=== PATIENT | male | born 1945 | race Caucasian/White ===

== ENCOUNTER 2018-04-25 18:39 | Observation (INO) | payer OTHER ==
[2018-04-25] MEDS ORDERED: NA CHLORIDE 0.9% 2,000 ML ONE (19:39)
[2018-04-25 20:05] LABS: Absolute Lymphocytes (CBC) 2.7 K/uL (0.7-4.9); Absolute Monocytes 0.8 K/uL (0.1-1.3); Absolute Neutrophil 5.5 K/uL (1.8-8.0); Basophils % 0.6 % (0-1.3); Eosinophils % 4.1 % (0-4.4); Hematocrit 47.4 % (39.6-49.0); Lymphocytes % 28.8 % (15.3-44.8); MCH 30.1 pg (27.0-35.0); MCV 88.3 fL (80-100); MPV 8.7 fL (7.6-11.3); Monocytes % 8.8 % (3.3-12.3); RBC Red Blood Cell Count 5.37 M/uL (4.33-5.43)
[2018-04-25 20:15] LABS: Protime INR 0.89
[2018-04-25 20:26] LABS: ALT/SGPT 41 U/L (12-78); AST/SGOT 34 U/L (15-37); Albumin 3.5 g/dL (3.4-5.0); Alkaline Phosphatase 148 U/L (45-117); BUN Blood Urea Nitrogen 20 mg/dL (7-18); Bicarbonate 26 mmol/L (21-32); Bilirubin Direct < 0.1 mg/dL (0-0.2); Bilirubin Total 0.7 mg/dL (0.2-1.0); CKMB Creatine Kinase MB 1.8 ng/mL (0.3-3.6); Creatine Phosphokinase 89 U/L (39-308); Glucose Level 390 mg/dL (74-106); Lipase 173 U/L (73-393); Magnesium 2.5 mg/dL (1.8-2.4); NT PRO-BNP 102 pg/mL (<125); Potassium 4.5 mmol/L (3.5-5.1); Protein, Total 7.9 g/dL (6.4-8.2); Sodium Level 131 mmol/L (136-145)
[2018-04-25 20:31] LABS: Urine Blood NEGATIVE (NEG); Urine Glucose 2+ (NEG); Urine Protein NEGATIVE (NEG); Urine Specific Gravity 1.015 (1.005-1.030); Urine pH 5.5 (5.0-7.0)
--- NOTE | 2018-04-25 20:36 | EDPHYS ---
Physician Documentation [facility] Name: Robel Lynn Age: 72 yrs Sex: Male : 1945 Arrival Date: 04/25/2018 Time: 18:44 Bed 27 Private MD: Piero Abad R ED Physician Telly Hudson HPI: 04/25 19:28 This 72 yrs old Male presents to ER via Ambulatory with complaints of High deepthi Blood Sugar, Blurred Vision. 19:28 The patient or guardian reports hyperglycemia. Onset: The symptoms/episode deepthi began/occurred 5 day(s) ago. Associated signs and symptoms: Pertinent positives: None. Current symptoms: In the emergency department the patient's symptoms are unchanged from the initial presentation. The patient has not experienced similar symptoms in the past. Historical: - Allergies: 18:53 No Known Allergies; aj1 - Home Meds: 18:53 Aspirin Oral [Active]; aj1 - PSHx: 18:53 Hernia repair; open neck surgery to open carotid artery; Vasectomy; aj1 - Immunization history:: Flu vaccine is not up to date. - Social history:: Smoking status: Patient/guardian denies using tobacco, the patient reports quitting approximately 10 years ago. - Ebola Screening: : Patient denies travel to an Ebola-affected area in the 21 days before illness onset. ROS: 19:32 Constitutional: Negative for fever, chills, and weight loss, Eyes: Negative for injury, deepthi pain, redness, and discharge, ENT: Negative for injury, pain, and discharge, Neck: Negative for injury, pain, and swelling, Cardiovascular: Negative for chest pain, palpitations, and edema, Respiratory: Negative for shortness of breath, cough, wheezing, and pleuritic chest pain, Abdomen/GI: Negative for abdominal pain, nausea, vomiting, diarrhea, and constipation, Back: Negative for injury and pain, : Negative for injury, bleeding, discharge, and swelling, MS/Extremity: Negative for injury and deformity, Skin: Negative for injury, rash, and discoloration, Neuro: Negative for headache, weakness, numbness, tingling, and seizure, Psych: Negative for depression, anxiety, suicide ideation, homicidal ideation, and hallucinations, Allergy/Immunology: Negative for hives, rash, and allergies, Hematologic/Lymphatic: Negative for swollen nodes, abnormal bleeding, and unusual bruising. 19:32 Endocrine: Positive for polydipsia, polyuria. Exam: 19:32 Constitutional: This is a well developed, well nourished patient who is awake, alert, deepthi and in no acute distress. Head/Face: Normocephalic, atraumatic. Eyes: Pupils equal round and reactive to light, extra-ocular motions intact. Lids and lashes normal. Conjunctiva and sclera are non-icteric and not injected. Cornea within normal limits. Periorbital areas with no swelling, redness, or edema. ENT: Nares patent. No nasal discharge, no septal abnormalities noted. Tympanic membranes are normal and external auditory canals are clear. Oropharynx with no redness, swelling, or masses, exudates, or evidence of obstruction, uvula midline. Mucous membranes moist. Neck: Trachea midline, no thyromegaly or masses palpated, and no cervical lymphadenopathy. Supple, full range of motion without nuchal rigidity, or vertebral point tenderness. No Meningismus. Chest/axilla: Normal chest wall appearance and motion. Nontender with no deformity. No lesions are appreciated. Cardiovascular: Regular rate and rhythm with a normal S1 and S2. No gallops, murmurs, or rubs. Normal PMI, no JVD. No pulse deficits. Respiratory: Lungs have equal breath sounds bilaterally, clear to auscultation and percussion. No rales, rhonchi or wheezes noted. No increased work of breathing, no retractions or nasal flaring. Back: No spinal tenderness. No costovertebral tenderness. Full range of motion. Male : Normal genitalia with no discharge or lesions. Skin: Warm, dry with normal turgor. Normal color with no rashes, no lesions, and no evidence of cellulitis. MS/ Extremity: Pulses equal, no cyanosis. Neurovascular intact. Full, normal range of motion. Neuro: Awake and alert, GCS 15, oriented to person, place, time, and situation. Cranial nerves II-XII grossly intact. Motor strength 5/5 in all extremities. Sensory grossly intact. Cerebellar exam normal. Normal gait. Psych: Awake, alert, with orientation to person, place and time. Behavior, mood, and affect are within normal limits. 19:32 Abdomen/GI: Inspection: distension, Bowel sounds: normal, Palpation: abdomen is soft and non-tender. Vital Signs: 18:53 BP 135 / 93; Pulse 80; Resp 18; Temp 97.6(TE); Pulse Ox 98% on R/A; Weight 113.4 kg aj1 (R); Height 6 ft. 0 in. (182.88 cm) (R); Pain 0/10; 20:38 BP 160 / 108; Pulse 72; Resp 16; Pulse Ox 98% ; tl3 21:27 BP 136 / 79; Pulse 74; Resp 18; Pulse Ox 96% on R/A; Pain 0/10; mg2 18:53 Body Mass Index 33.91 (113.40 kg, 182.88 cm) aj1 MDM: 19:15 Patient medically screened. [facility] 19:32 Data reviewed: vital signs, nurses notes, lab test result(s), EKG, radiologic studies, deepthi plain films. 04/25 19:27 Order name: Urine Dipstick--Ancillary (enter results); Complete Time: 21:16 [facility] 04/25 19:28 Order name: Basic Metabolic Panel; Complete Time: 20:31 [facility] 04/25 19:28 Order name: CBC with Diff; Complete Time: 20:13 [facility] 04/25 19:28 Order name: Ckmb; Complete Time: 20:31 [facility] 04/25 19:28 Order name: CPK; Complete Time: 20:31 [facility] 04/25 19:28 Order name: LFT's; Complete Time: 20:31 [facility] 04/25 19:28 Order name: Magnesium; Complete Time: 20:31 [facility] 04/25 19:28 Order name: NT PRO-BNP; Complete Time: 20:31 [facility] 04/25 19:28 Order name: PT-INR; Complete Time: 20:31 [facility] 04/25 19:28 Order name: Ptt, Activated; Complete Time: 20:31 [facility] 04/25 19:28 Order name: Troponin (emerg Dept Use Only); Complete Time: 20:31 [facility] 04/25 19:28 Order name: Lipase; Complete Time: 20:31 [facility] 04/25 20:44 Order name: Basic Metabolic Panel [facility] 04/25 20:44 Order name: Basic Metabolic Panel [facility] 04/25 19:28 Order name: XRAY Chest (1 view); Complete Time: 21:16 [facility] 04/25 19:28 Order name: EKG; Complete Time: 19:29 [facility] 04/25 19:28 Order name: Cardiac monitoring; Complete Time: 19:31 [facility] 04/25 20:44 Order name: Consistent Carb (ADA) 1800 Matty EDMS 04/25 20:44 Order name: EKG Electrocardiogram EDMS 04/25 20:44 Order name: EKG Electrocardiogram EDMS 04/25 20:44 Order name: EKG Electrocardiogram EDMS 04/25 20:44 Order name: EKG Electrocardiogram EDMS 04/25 20:44 Order name: CBC with Automated Diff EDMS 04/25 20:44 Order name: CBC with Automated Diff EDMS 04/25 20:44 Order name: Troponin I EDKS 04/25 20:44 Order name: Troponin I EDMS 04/25 20:44 Order name: Troponin I EDKS 04/25 19:28 Order name: EKG - Nurse/Tech; Complete Time: 19:54 [facility] 04/25 19:28 Order name: IV Saline Lock; Complete Time: 19:32 [facility] 04/25 19:28 Order name: Labs collected and sent; Complete Time: 20:07 [facility] 04/25 19:28 Order name: O2 Per Protocol; Complete Time: 20:07 [facility] 04/25 19:28 Order name: O2 Sat Monitoring; Complete Time: 20:07 [facility] 04/25 19:28 Order name: Urine Dipstick-Ancillary (obtain specimen); Complete Time: 20:08 [facility] Administered Medications: 19:41 Drug: NS 0.9% 1000 ml Route: IV; Rate: 1 bolus; Site: left antecubital; mg2 20:37 Follow up: IV Status: Completed infusion; IV Intake: 1000ml tl3 20:23 Drug: NS 0.9% 1000 ml Route: IV; Rate: 125 ml/hr; Site: left antecubital; mg2 21:30 Drug: Insulin Regular Human 8 units {Co-Signature: mg2 (Catarino Mackay RN).} Route: tl3 Sub-Q; Site: right lower abdomen; Point of Care Testing: Blood Glucose: 20:38 Blood Glucose: 287 mg/dL; tl3 Ranges: Critical Glucose Levels:Adult <50 mg/dl or >400 mg/dl <40 mg/dl or >180 mg/dl Disposition: 04/25/18 20:35 Hospitalization ordered by Kofi Davidson for Observation. Preliminary diagnosis are Type 2 diabetes mellitus - new onset, Unspecified kidney failure, Weakness, Polydipsia, Polyuria, Hypo-osmolality and hyponatremia. - Bed requested for Telemetry/MedSurg (observation). - Status is Observation. mg2 - Condition is Fair. - Problem is new. - Symptoms have improved. UTI on Admission? No Signatures: Dispatcher [employer] EDMS Karla Ventura RN RN aj1 Ivon Irvin RN RN kl Anderson, Corey, MD MD cha Lowrey, Tammy, RN RN tl3 Catarino Mackay RN RN mg2 Catarino Mackay RN mg2 Corrections: (The following items were deleted from the chart) 20:49 20:35 Hospitalization Ordered by A Lety PINA for Observation. Preliminary diagnosis is kl Type 2 diabetes mellitus - new onset; Unspecified kidney failure; Weakness; Polydipsia; Polyuria; Hypo-osmolality and hyponatremia. Bed requested for Telemetry/MedSurg (observation). Status is Observation. Condition is Fair. Problem is new. Symptoms have improved. UTI on Admission? No. deepthi 22:24 20:49 04/25/2018 20:35 Hospitalization Ordered by A Lety PINA for Observation. mg2 Preliminary diagnosis is Type 2 diabetes mellitus - new onset; Unspecified kidney failure; Weakness; Polydipsia; Polyuria; Hypo-osmolality and hyponatremia. Bed requested for Telemetry/MedSurg (observation). Status is Observation. Condition is Fair. Problem is new. Symptoms have improved. UTI on Admission? No. kl
--- NOTE | 2018-04-25 20:36 | ER ---
Nurse's Notes [facility] Name: Robel Lynn Age: 72 yrs Sex: Male : 1945 Arrival Date: 04/25/2018 Time: 18:44 Bed 27 Private MD: Piero Abad R Diagnosis: Type 2 diabetes mellitus-new onset;Unspecified kidney failure;Weakness;Polydipsia;Polyuria;Hypo-osmolality and hyponatremia Presentation: 04/25 18:48 Presenting complaint: Patient states: Reports fatigue, blurred vision, urinary aj1 frequency, increased thirst for the past 2 weeks. His daughter checked his blood sugar and it was 402. Patient has no past history of diabetes. Denies N/V/D. Denies pain. Transition of care: patient was not received from another setting of care. Onset of symptoms was April 10, 2018. Risk Assessment: Do you want to hurt yourself or someone else? Patient reports no desire to harm self or others. Initial Sepsis Screen: Does the patient meet any 2 criteria? No. Patient's initial sepsis screen is negative. Does the patient have a suspected source of infection? No. Patient's initial sepsis screen is negative. Care prior to arrival: None. 18:48 Method Of Arrival: Ambulatory aj1 18:48 Acuity: ROSIO 3 aj1 Triage Assessment: 18:53 General: Appears in no apparent distress. comfortable, Behavior is calm, cooperative, aj1 appropriate for age. Pain: Denies pain. Neuro: Level of Consciousness is awake, alert, obeys commands, Moves all extremities. Gait is steady, Speech is normal, Facial symmetry appears normal, Intact Reports blurred vision dizziness. Cardiovascular: Patient's skin is warm and dry. Respiratory: Airway is patent Respiratory effort is even, unlabored, Respiratory pattern is regular, symmetrical. : Reports urinary frequency, increased thirst. Derm: Skin is pink, warm \T\ dry. normal. Historical: - Allergies: 18:53 No Known Allergies; aj1 - Home Meds: 18:53 Aspirin Oral [Active]; aj1 - PSHx: 18:53 Hernia repair; open neck surgery to open carotid artery; Vasectomy; aj1 - Immunization history:: Flu vaccine is not up to date. - Social history:: Smoking status: Patient/guardian denies using tobacco, the patient reports quitting approximately 10 years ago. - Ebola Screening: : Patient denies travel to an Ebola-affected area in the 21 days before illness onset. Screenin:18 Abuse screen: Denies threats or abuse. Denies injuries from another. Nutritional mg2 screening: No deficits noted. Tuberculosis screening: No symptoms or risk factors identified. Fall Risk IV access (20 points). Assessment: 19:19 General: Appears comfortable, Behavior is calm, cooperative. Pain: Denies pain. Neuro: mg2 Level of Consciousness is awake, alert, obeys commands, Oriented to person, place, time, situation. Cardiovascular: Capillary refill < 3 seconds Patient's skin is warm and dry. Respiratory: Airway is patent Respiratory effort is even, unlabored, Respiratory pattern is regular, symmetrical. GI: No signs and/or symptoms were reported involving the gastrointestinal system. : Reports urinary frequency. EENT: No signs and/or symptoms were reported regarding the EENT system. Derm: Skin is intact, Skin is pink, warm \T\ dry. normal. Musculoskeletal: Circulation, motion, and sensation intact. 20:38 Reassessment: Patient and/or family updated on plan of care and expected duration. Pain tl3 level reassessed. Patient is alert, oriented x 3, equal unlabored respirations, skin warm/dry/pink. pt is alert and visiting with family. 22:04 Reassessment: 2nd set of trop I sent and nurse receiving the patient will call back to mg2 take the report. Vital Signs: 18:53 BP 135 / 93; Pulse 80; Resp 18; Temp 97.6(TE); Pulse Ox 98% on R/A; Weight 113.4 kg aj1 (R); Height 6 ft. 0 in. (182.88 cm) (R); Pain 0/10; 20:38 BP 160 / 108; Pulse 72; Resp 16; Pulse Ox 98% ; tl3 21:27 BP 136 / 79; Pulse 74; Resp 18; Pulse Ox 96% on R/A; Pain 0/10; mg2 18:53 Body Mass Index 33.91 (113.40 kg, 182.88 cm) aj1 ED Course: 18:44 Patient arrived in ED. mr 18:44 Piero Abad MD is Private Physician. mr 18:51 Triage completed. aj1 18:53 Arm band placed on. aj1 18:56 Catarino Mackay NOR[facility] is Primary Nurse. mg2 19:15 Telly Hudson MD is Attending Physician. deepthi 19:19 Patient has correct armband on for positive identification. Placed in gown. Bed in low mg2 position. Call light in reach. Side rails up X2. 19:19 Inserted saline lock: 20 gauge in left antecubital area, using aseptic technique. Blood mg2 collected. 19:52 EKG done, by ED staff, reviewed by Telly Hudson MD. jp3 19:53 monitoring engineer on. jp3 20:33 Kofi Davidson MD is Hospitalizing Provider. deepthi 20:36 X-ray completed. Portable x-ray completed in exam room. Patient tolerated procedure tm4 well. 20:39 XRAY Chest (1 view) In Process Unspecified. EDMS 22:17 No provider procedures requiring assistance completed. Patient admitted, IV remains in mg2 place. Administered Medications: 19:41 Drug: NS 0.9% 1000 ml Route: IV; Rate: 1 bolus; Site: left antecubital; mg2 20:37 Follow up: IV Status: Completed infusion; IV Intake: 1000ml tl3 20:23 Drug: NS 0.9% 1000 ml Route: IV; Rate: 125 ml/hr; Site: left antecubital; mg2 21:30 Drug: Insulin Regular Human 8 units {Co-Signature: mg2 (Catarino Mackay RN).} Route: tl3 Sub-Q; Site: right lower abdomen; Point of Care Testing: Blood Glucose: 20:38 Blood Glucose: 287 mg/dL; tl3 Ranges: Intake: 20:37 IV: 1000ml; Total: 1000ml. tl3 Outcome: 20:35 Decision to Hospitalize by Provider. deepthi 22:17 Admitted to Tele accompanied by tech, via wheelchair, room 424, with chart, Report mg2 called to NOR[facility] Rousseau 22:17 Condition: stable 22:17 Instructed on the need for admit, Demonstrated understanding of instructions. 22:24 Patient left the ED. mg2 Signatures: Dispatcher [employer] EDMS Karla Ventura, RN RN aj1 Telly Hudson MD MD cha Rivera, Maria Shari Dupont tm4 Lucy Bailey RN RN tl3 Catarino Mackay RN RN mg2 Carlos Martel jp3 Catarino cain
[2018-04-25] MEDS ORDERED: ONDANSETRON 4 MG/2 ML VIAL IV PRN (20:39)
[2018-04-25] MEDS ORDERED: ACETAMINOPHEN 500 MG TAB PO PRN (20:39)
[2018-04-25] MEDS ORDERED: D50W 25 GM/50 ML SYRINGE IV PRN (20:40)
[2018-04-25] MEDS ORDERED: GLUCAGON 1 MG/VIAL IM PRN (20:40)
--- NOTE | 2018-04-25 20:52 | RAD REPORT ---
EXAM DESCRIPTION: RAD - Chest Single View - 04/25/2018 8:45 pm CLINICAL HISTORY: COUGH Chest pain. COMPARISON: 10/15/2012 FINDINGS: Portable technique limits examination quality. The lungs are grossly clear. The heart is normal in size. No displaced fractures. IMPRESSION: No acute intrathoracic process suspected.
[2018-04-25] MEDS: NA CHLORIDE 0.9% 1,000 ML IV SCH (21:00)
[2018-04-25] MEDS: INSULIN -REGULAR HUMAN 50 UNIT/0.5 ML ML SQ SCH (21:00)
[2018-04-25] MEDS ORDERED: FAMOTIDINE 20 MG/2 ML VIAL IV SCH (21:00)
[2018-04-25] MEDS ORDERED: INSULIN -REGULAR HUMAN 50 UNIT/0.5 ML ML ONE (21:30)
[2018-04-26] VITALS: BMI 33.0
[2018-04-26] MEDS: NA CHLORIDE 0.9% 1,000 ML IV SCH ×2 (03:56→13:24)
[2018-04-26 05:53] LABS: Absolute Lymphocytes (CBC) 2.1 K/uL (0.7-4.9); Absolute Monocytes 0.7 K/uL (0.1-1.3); Absolute Neutrophil 4.3 K/uL (1.8-8.0); Basophils % 0.4 % (0-1.3); Eosinophils % 5.1 % (0-4.4); Hematocrit 41.9 % (39.6-49.0); MCH 29.9 pg (27.0-35.0); MCV 86.7 fL (80-100); MPV 8.4 fL (7.6-11.3); Monocytes % 8.9 % (3.3-12.3); RBC Red Blood Cell Count 4.83 M/uL (4.33-5.43)
[2018-04-26 06:26] LABS: BUN Blood Urea Nitrogen 16 mg/dL (7-18); Bicarbonate 27 mmol/L (21-32); Glucose Level 288 mg/dL (74-106); HDL Cholesterol 29 mg/dL (40-60); LDL Cholesterol, Calculated ND (<130); Magnesium 2.3 mg/dL (1.8-2.4); Potassium 3.8 mmol/L (3.5-5.1); Sodium Level 138 mmol/L (136-145)
[2018-04-26 06:44] LABS: LDL, Direct 86 mg/dL (100-129)
--- NOTE | 2018-04-26 07:56 | HP ---
Date of Admission: 04/25/2018 Chief Complaint: Feeling dizzy, tired, and high blood sugar. History Of Present Illness: A 72-year-old male patient who has no prior history of diabetes, has not felt good in the last 2 weeks. He started to have feeling of just low energy and fatigue feeling associated with dizziness in the last 2 weeks. He says that he also has noted that he has lost about 12 pounds weight in less than a month or so and he is not trying to lose weight. He is having excessive amount of thirst and urinating very frequently during daytime as well as multiple times at nighttime and says he wakes up about 8 times throughout the night just to urinate. He also has noted some blurred vision for last 2 months. Today, his daughter who is a nurse actually checked his blood sugar with all these complaints and his blood sugar was more than 400, and with all these symptoms, he was brought into the emergency room. After he was evaluated in the ER, I was contacted requesting admission to the hospital. Some of the patient's family members, they are my patients, so the patient and family member requested for me to take care of him for this hospital admission, so I did go out to emergency room and evaluated him. His family was with him at bedside. Allergies: NO KNOWN ALLERGIES. Medications: Only medication he takes is aspirin 81 mg, he takes 3 tablets by mouth daily. He was taking some medication for cholesterol in the past, but once he ran out of the medication, he decided not to continue it anymore and he did not have any side effect. Review of Systems: Endocrine: As mentioned above. Genitourinary: As mentioned above. Eyes: As mentioned above. Constitutional: As mentioned above. All other systems reviewed and negative. Social History: Negative for alcohol use. Prior history of smoking and he quit smoking about 10 years ago. Family History: Not pertinent. Past Surgical History: Hernia repair and right carotid artery endarterectomy about 10 years ago. Past Medical History: Carotid artery stenosis (bilateral), otherwise no prior history of hypertension, diabetes, hyperlipidemia, or coronary artery disease. Physical Examination: Vital Signs: When he came into the emergency room vital signs included blood pressure 135/93, pulse 80, respiratory rate 18, temperature 97.6, pulse ox 98%. Weight 113.4 kg, height 6 feet. General: Awake, alert, oriented, not in distress. HEENT: Head atraumatic, normocephalic. Conjunctivae nonerythematous. Sclerae white. Mouth, no thrush or edema noted. Ears/Nose, no mass, lesion, discharge noted. Neck: Supple. No JVD, lymph nodes, bruit, thyromegaly noted. Lungs: Bilateral good equal air entry. Clear to auscultation. No rhonchi. No rales. Heart: Normal heart sounds, no murmur or gallop. Abdomen: Soft, bowel sounds normal. No guarding, rigidity, tenderness, mass, hepatosplenomegaly, distention, or bruit noted. Extremities: No leg edema. No calf tenderness. Skin: No rash, ulcer, cellulitis. Lymphatics: No lymph node enlargement in neck, supraclavicular, infraclavicular region. Neuro: No focal neurological deficit. Chest: Unremarkable. External Genitalia: Deferred. Rectal: Deferred. Laboratory Data: Chest x-ray; no acute cardiopulmonary changes. White count 9.5, hemoglobin 16.1, platelets 229. PT/PTT normal. Sodium 131, potassium 4.5 , chloride 100, bicarb 26, BUN 20, creatinine 1.40, glucose 390, calcium 9, magnesium 2.5. Liver function tests unremarkable. Troponin less than 0.02, lipase 173. Urinalysis unremarkable except 2+ glucose. Impression: 1. Type 2 diabetes mellitus, uncontrolled, new onset. 2. Hyponatremia. 3. Volume depletion. 4. Chronic kidney disease, stage 3. 5. Carotid artery disease, bilateral. Plan: We will go ahead and admit the patient to hospital for further evaluation and management of this problem. The patient is going to be admitted as observation. We will go ahead and continue IV fluid. We will get hemoglobin A1c, Chem-7, lipid profile done tomorrow morning and we will have a dietitian consult and start him on appropriate diabetes medication probably tomorrow. Meanwhile, we will continue to manage him with sliding scale insulin. The patient will need to start taking some statin therapy as well as we should also start him on some antihypertensive medication for renal protection using OUMAR inhibitor or ARB. Details of plan of treatment were discussed with the patient. The patient's dietary habit reviewed with him. He eats lots of carbohydrate and food with high sugar content and we did talk about dietary education and importance of dietary restriction along with medication to control diabetes. I will see him tomorrow morning for followup. Details and plan of treatment discussed with the patient. DONY/MARTIN Voice ID: [id number] MTDD
[2018-04-26] MEDS: INSULIN -REGULAR HUMAN 50 UNIT/0.5 ML ML SQ SCH ×3 (08:35→16:42)
[2018-04-26 08:36] VITALS: O2SAT 94
[2018-04-26] MEDS: GLIMEPIRIDE 2 MG TABLET PO SCH ×2 (08:36→16:43)
[2018-04-26] MEDS: METFORMIN HCL 500 MG TAB PO SCH ×2 (08:36→16:43)
[2018-04-26] MEDS ORDERED: FAMOTIDINE 20 MG/2 ML VIAL IV SCH (09:00)
[2018-04-26] MEDS ORDERED: ASPIRIN EC 81 MG TAB PO SCH (09:00)
[2018-04-26 17:19] VITALS: BP 132/77; TEMP 98.2
[2018-04-26] MEDS ORDERED: FAMOTIDINE 20 MG TAB PO SCH (21:00)
--- NOTE | 2018-04-27 10:31 | EKG ---
Test Date: 2018-04-26 Test Time: 09:25:00 Central Communications Specialist: MELODIE MEASUREMENT RESULTS: Intervals: Rate: 76 KS: 156 QRSD: 92 QT: 378 QTc: 425 [place]: P: 57 KS: 156 QRS: 48 T: 66 INTERPRETIVE STATEMENTS: Normal sinus rhythm Nonspecific T wave abnormality Abnormal ECG Compared to ECG 04/25/2018 19:40:57 T-wave abnormality now present Electronically Signed On 04-27-18 10:27:34 CDT by Jacky Butler
--- NOTE | 2018-04-27 10:32 | EKG ---
Test Date: 2018-04-25 Test Time: 19:40:57 Application Development Consultant: MG MEASUREMENT RESULTS: Intervals: Rate: 79 AL: 160 QRSD: 94 QT: 376 QTc: 431 [place]: P: 46 AL: 160 QRS: 20 T: 63 INTERPRETIVE STATEMENTS: Normal sinus rhythm Normal ECG Compared to ECG 10/15/2012 10:12:47 T-wave abnormality no longer present Electronically Signed On 04-27-18 10:27:45 CDT by Jacky Butler
--- NOTE | 2018-04-27 18:21 | DS ---
Date of Discharge: 04/26/2018 Disposition: Discharged to go home. Physical Examination: HEENT: Unremarkable. Lungs: Clear to auscultation. Heart: Sounds normal. Abdomen: Soft, bowel sounds normal. No guarding, rigidity, tenderness, or distention. Extremities: No leg edema. Discharge Medications/instructions: 1.Continue aspirin as you were taking prior to this admission. 2.Take new medications as below: a.Losartan 25 mg 1 tablet by mouth daily in morning with breakfast. b.Rosuvastatin 10 mg take 1 tablet by mouth daily at bedtime. c.Glimepiride 2 mg, patient to take 1 tablet by mouth 2 times a day, which is with breakfast and wit h supper. d.Metformin 750 mg take 1 tablet by mouth 2 times a day, which is with breakfast and supper. 3.Check your blood sugar before breakfast, before supper, record it and bring readings to my office at the time of followup visit. 4.Follow up at my office on 05/03/2018 at 8 a.m. 5.Eat diabetic diet as suggested by dietitian. 6.Eat your meals in timely manner. 7.Do not delay your meals. 8.Do not skip your meal. Laboratory Data: Done during this hospitalization, initial white count 9.5, hemoglobin 16.1, platele ts 229. Repeat white count 7.5, hemoglobin 14.4, platelets 186, hemoglobin A1c 12.9, triglyceride 42 1, total cholesterol 175, LDL 86, HDL 29, last creatinine 1.10, BUN 16. Sodium 138, potassium 3.8. When he first came in, sodium 131, potassium 4.5, BUN 20, creatinine 1.40. Liver function tests unre markable. Troponin less than 0.02. Hospital Course: This is a 72-year-old, pleasant male patient, came into emergency room with complai nts of feeling dizzy, weak, tired, and high blood sugar. Please see dictated H and P for more inform ation. After the patient was evaluated in the ER, was admitted to the hospital for new onset uncontr olled diabetes mellitus. He was given IV fluid. He was started on sliding scale insulin. Day after admission, we started him on metformin and glimepiride. Consultation was requested from dietitian shahab mendoza life skills educator. Nursing staff was instructed to teach the patient how to give himself insulin injection as well as how to check his fingerstick blood sugar at home. I did talk to him explaining him importance of diet, exercise, and weight loss. I also explained it to the patient that it is lizandro y important that he eats his diabetic meals in timely manner, which is his breakfast, lunch, and dinn er. He should not skip his meals. He should not delay his meals to reduce chances of hypoglycemias. He should take his medication as prescribed on a regular basis. I also advised him to take his los dianna as prescribed not only to help control the blood pressure, but also for renal protection. His lipid profile result discussed with him and I suggested to start him on statin therapy. He had a rig ht carotid artery endarterectomy surgery done about 10 years ago. He was taking cholesterol medicati on, but then he decided to stop on his own. He did not have any side effect. In the past, he was to ld to have about 40% stenosis of the left carotid artery as well. He has not seen drug and alcohol treatment specialist in [place] few years, so what we will do is once I see him at the office, we will go ahead and probably start getting some workup done on his carotid artery stenosis with carotid Doppler studies. I will see lady gibbs for followup as mentioned above, and then we will decide further adjustment on diabetes medications . Initially we thought the patient had chronic kidney disease, stage 3 because his creatinine was 1.4 u breezy admission this time and that is what his previous creatinine was according to hospital record, bu t after IV fluid hydration, creatinine came down, so we really believed that most of the abnormal cre atinine we saw at this time was due to volume depletion. He may have very beginning of chronic kidne y disease, stage 3, but obviously we will continue to follow up on outpatient basis. Final Diagnoses: 1.Type 2 diabetes mellitus, new onset, uncontrolled. 2.Hyponatremia, secondary to above. 3.Volume depletion, resolved. 4.Carotid artery disease, bilateral. 5.Chronic kidney disease, stage 3. DONY/MODL Voice ID: [id number] Report ID: [id number]
== END 2018-04-26 17:51 | disposition home or self-care (01) ==
LOC: ER 18:39 → 4TH 20:57
PROVIDERS: ADMIT Internal Medicine; ATTEND Internal Medicine
DX: E11.65 Type 2 diabetes mellitus with hyperglycemia (principal); E87.1 Hypo-osmolality and hyponatremia; E86.9 Volume depletion, unspecified; I77.89 Other specified disorders of arteries and arterioles
CPT/HCPCS: 36415; 71045; 80048 ×2; 80061; 80076; 81003; 82550; 82553; 82962 ×5; 83036; 83690; 83721; 83735 ×2; 83880; 84443; 84484 ×3; 85025 ×2; 85610; 85730; 93005 ×2; 96360; 96372; 99285; G0103; J7030 ×3; G0378

== ENCOUNTER 2020-12-10 09:22 | Emergency (ER) | payer OTHER ==
--- OUTSIDE RECORDS SUMMARY | 2020-12-10 09:25 | XMS REPORT | Continuity of Care Document ---
:1945 Author Organization [facility] t Address [address] [place] [address] Care Team Providers Name Role Phone Provider, Urgent Care Attending Clinician Unavailable Problems This patient has no known problems. Allergies, Adverse Reactions, Alerts This patient has no known allergies or adverse reactions. Medications This patient has no known medications. Procedures This patient has no known procedures. Encounters Start End Encounter Admission Attending Care Care Encounter Source Date/Time Date/Time Type Type Clinicians Facility Department ID 2020-12-07 2020[facility]12-07 [id number] 16:09:56 17:02:11 [facility] [id number] [facility] [id number] Profjulio [id number] [address] Results This patient has no known results.
--- NOTE | 2020-12-10 10:46 | RAD REPORT ---
EXAM DESCRIPTION: RAD - Chest Single View - 12/10/2020 9:58 am CLINICAL HISTORY: COUGH, fever, COVID positive COMPARISON: April 2018 TECHNIQUE: AP portable chest image was obtained 12/10/2020 9:58 am . FINDINGS: Dense consolidation is seen in the lateral right upper lobe. No definitive right lower darian g field lower left lung field infiltrate. Findings are typical for bacterial pneumonia. There is no c avitation or underlying mass. Given the positive COVID test, an atypical presentation of COVID-19 pne umonia is certainly possible as well. Heart and vasculature are normal. No measurable pleural effusio n and no pneumothorax. No acute bony abnormality seen. No acute aortic findings suspected. IMPRESSION: Dense consolidated pneumonia right upper lobe without definitive pneumonia elsewhere. Pattern is typical for a bacterial pneumonia but could still be an atypical presentation of COVID-19 pneumonia given the provided history. Given the patient's age, follow-up is needed to assure complete clearing.
[2020-12-10 11:10] LABS: SARS-COV-2 RT PCR NEGATIVE (NEGATIVE)
[2020-12-10] MEDS ORDERED: AZITHROMYCIN IV 500 MG in NA CHLORIDE 0.9% 250 ML IVPB ONE (11:15)
[2020-12-10] MEDS ORDERED: CEFTRIAXONE/SWI 1gm 1 GM/10 ML SYR ONE (11:21)
[2020-12-10 11:33] LABS: Absolute Lymphocytes (CBC) 1.3 K/uL (0.7-4.9); Basophils % 0.6 % (0-1.3); Lymphocytes % 11.4 % (15.3-44.8); MPV 7.2 fL (7.6-11.3); RBC Red Blood Cell Count 4.82 M/uL (4.33-5.43)
[2020-12-10 11:39] LABS: Potassium 4.2 mmol/L (3.5-5.1)
--- NOTE | 2020-12-10 13:17 | EDPHYS ---
Physician Documentation [facility] Name: Robel Lynn Age: 75 yrs Sex: Male : 1945 Arrival Date: 12/10/2020 Time: 09:25 Bed 6 Private MD: Kofi Davidson C ED Physician Dmitri Joyce HPI: 12/10 13:38 This 75 yrs old Male presents to ER via Ambulatory with complaints of Cough, kb Shortness Of Breath, Congestion. 13:38 The patient or guardian reports cough, that is intermittent, described as moderate, kb difficulty breathing, flu symptoms, low-grade fever. Onset: The symptoms/episode began/occurred 1 week(s) ago. Severity of symptoms: At their worst the symptoms were moderate, in the emergency department the symptoms are unchanged. Modifying factors: The symptoms are alleviated by nothing, the symptoms are aggravated by nothing. Associated signs and symptoms: Pertinent positives: fever, Pertinent negatives: chest pain, diarrhea, ear ache, nausea, rhinorrhea, sore throat, vomiting. The patient has not experienced similar symptoms in the past. The patient has not recently seen a physician. Pt reports cough for 3 weeks. Last week developed congestion, fever and fatigue as well. Tested negative for COVID on Sunday. Called Dr Davidson this morning and was sent to ED for eval. Historical: - Allergies: 09:33 No Known Allergies; jl7 - Home Meds: 09:44 Metformin Oral [Active]; jd3 - PMHx: 09:44 Hypertension; High Cholesterol; Diabetes - NIDDM; jd3 - PSHx: 09:33 Hernia repair; open neck surgery to open carotid artery; Vasectomy; jl7 - Immunization history:: Adult Immunizations up to date. - Social history:: Smoking status: unknown. ROS: 13:37 Cardiovascular: Negative for chest pain, palpitations, and edema, Abdomen/GI: Negative kb for abdominal pain, nausea, vomiting, diarrhea, and constipation, MS/Extremity: Negative for injury and deformity, Skin: Negative for injury, rash, and discoloration, Neuro: Negative for headache, weakness, numbness, tingling, and seizure. 13:37 Constitutional: Positive for fatigue, fever, malaise. 13:37 Respiratory: Positive for cough, shortness of breath. Exam: 13:37 Constitutional: This is a well developed, well nourished patient who is awake, alert, kb and in no acute distress. Head/Face: Normocephalic, atraumatic. Cardiovascular: Regular rate and rhythm with a normal S1 and S2. No gallops, murmurs, or rubs. Normal PMI, no JVD. No pulse deficits. Respiratory: Lungs have equal breath sounds bilaterally, clear to auscultation and percussion. No rales, rhonchi or wheezes noted. No increased work of breathing, no retractions or nasal flaring. Abdomen/GI: Soft, non-tender, with normal bowel sounds. No distension or tympany. No guarding or rebound. No evidence of tenderness throughout. Skin: Warm, dry with normal turgor. Normal color with no rashes, no lesions, and no evidence of cellulitis. MS/ Extremity: Pulses equal, no cyanosis. Neurovascular intact. Full, normal range of motion. Neuro: Awake and alert, GCS 15, oriented to person, place, time, and situation. Cranial nerves II-XII grossly intact. Motor strength 5/5 in all extremities. Sensory grossly intact. Cerebellar exam normal. Normal gait. Vital Signs: 09:44 BP 137 / 94; Pulse 99; Resp 19 S; Temp 98.7(O); Pulse Ox 99% on R/A; Weight 99.79 kg jd3 (R); Height 6 ft. 0 in. (182.88 cm) (R); Pain 0/10; 10:43 BP 109 / 73; Pulse 96; Resp 17; Pulse Ox 96% ; jl7 11:34 BP 126 / 86; Pulse 91; Resp 19; Pulse Ox 99% ; jl7 12:37 BP 140 / 86; Pulse 88; Resp 19; Pulse Ox 100% ; jl7 13:24 BP 116 / 70; Pulse 87; Resp 17 S; Pulse Ox 98% on R/A; jd3 09:44 Body Mass Index 29.84 (99.79 kg, 182.88 cm) jd3 MDM: 09:33 Patient medically screened. kb 13:36 Data reviewed: vital signs, nurses notes. Data interpreted: Pulse oximetry: on room air kb is 98 %. Interpretation: normal. Counseling: I had a detailed discussion with the patient and/or guardian regarding: the historical points, exam findings, and any diagnostic results supporting the discharge/admit diagnosis, lab results, radiology results, the need for outpatient follow up, a family practitioner, to return to the emergency department if symptoms worsen or persist or if there are any questions or concerns that arise at home. Physician consultation: Kofi Davidson MD regarding consult, patient's condition, and will see patient in office, next week. 12/10 10:49 Order name: CBC with Diff kb 12/10 10:49 Order name: Basic Metabolic Panel kb 12/10 10:49 Order name: Blood Culture Adult (2) kb 12/10 10:49 Order name: Procalcitonin; Complete Time: 13:11 kb 12/10 09:38 Order name: Chest Single View XRAY; Complete Time: 10:48 kb 12/10 10:49 Order name: IV Start; Complete Time: 11:33 kb 12/10 10:49 Order name: Lactate; Complete Time: 12:04 kb 12/10 10:49 Order name: CBC with Automated Diff; Complete Time: 11:45 EDMS 12/10 10:49 Order name: Basic Metabolic Panel; Complete Time: 11:45 EDMS 12/10 11:11 Order name: COVID-19/FLU A+B; Complete Time: 11:11 EDMS Administered Medications: 11:33 Drug: Rocephin 1 grams Route: IV; Rate: calculated rate; Site: right forearm; jd3 11:36 Follow up: Response: No adverse reaction; IV Status: Completed infusion jl7 11:33 Drug: Zithromax 500 mg Route: IVPB; Infused Over: 1 hrs; Site: right forearm; jd3 12:37 Follow up: Response: No adverse reaction; IV Status: Completed infusion jl7 Disposition: 12/10/20 13:16 Discharged to Home. Impression: Pneumonia, unspecified organism. - Condition is Stable. - Discharge Instructions: Community-Acquired Pneumonia, Adult, [id number]. - Prescriptions for Levaquin 500 mg Oral Tablet - take 1 tablet by ORAL route once daily for 10 days; 10 tablet. Prednisone 20 mg Oral Tablet - take 1 tablet by ORAL route once daily for 5 days; 5 tablet. - Medication Reconciliation Form, Thank You Letter, Antibiotic Education, Prescription Opioid Use form. - Follow up: Emergency Department; When: As needed; Reason: Worsening of condition. Follow up: Kofi Davidson MD; When: 2 - 3 days; Reason: Recheck today's complaints, Continuance of care, Re-evaluation by your physician. Addendum: 12/13/2020 06:00 Co-signature as Attending Physician, Dmitri Joyce MD I agree with the assessment and k dr plan of care. Signatures: Dispatcher [employer] EDGA FlakoElena, DATA STORAGE SPECIALIST-C DATA STORAGE SPECIALIST-Ckb Dmitri Joyce MD MD [facility] Yulia Samano RN RN jl7 Zai Leija RN RN jd3 Corrections: (The following items were deleted from the chart) 12/10 10:23 09:39 CORONAVIRUS+MR.LAB.BRZ ordered. EDGA EDGA 10:24 09:39 Influenza Screen (A \T\ B)+BA.LAB.BRZ ordered. [facility] EDMS 13:25 13:16 12/10/2020 13:16 Discharged to Home. Impression: Pneumonia, unspecified organism. jd3 Condition is Stable. Forms are Medication Reconciliation Form, Thank You Letter, Antibiotic Education, Prescription Opioid Use. Follow up: Emergency Department; When: As needed; Reason: Worsening of condition. Follow up: Kofi Davidson; When: 2 - 3 days; Reason: Recheck today's complaints, Continuance of care, Re-evaluation by your physician. kb
--- NOTE | 2020-12-10 13:17 | ER ---
Nurse's Notes [facility] Name: Robel Lynn Age: 75 yrs Sex: Male : 1945 Arrival Date: 12/10/2020 Time: 09:25 Bed 6 Private MD: Kofi Davidson C Diagnosis: Pneumonia, unspecified organism Presentation: 12/10 09:34 Coronavirus screen: Client denies travel out of the [place] in the last 14 days. jl7 congestion, cough unrelated to allergies, shortness of breath, Client presents with at least one sign or symptom that may indicate coronavirus-19. Standard/surgical mask placed on the client. Provider contacted for isolation considerations. Ebola Screen: No symptoms or risks identified at this time. Initial Sepsis Screen: Does the patient meet any 2 criteria?. Risk Assessment: Do you want to hurt yourself or someone else? Patient reports no desire to harm self or others. Onset of symptoms was December 05, 2020. Care prior to arrival: None. 09:39 Chief complaint: Patient states: "Dr. Mcgowan sent me over here because I was having COVID jd3 symptoms. I was tested on Sunday, but it was negative. I have been sick for about a week now with this cough and shortness of breath. and I was a fever that day I was tested.". Initial Sepsis Screen: Does the patient have a suspected source of infection? No. Patient's initial sepsis screen is negative. 09:39 Acuity: ROSIO 4 jd3 09:39 Method Of Arrival: Ambulatory jd3 13:17 Acuity: ROSIO 3 jd3 Historical: - Allergies: 09:33 No Known Allergies; jl7 - Home Meds: 09:44 Metformin Oral [Active]; jd3 - PMHx: 09:44 Hypertension; High Cholesterol; Diabetes - NIDDM; jd3 - PSHx: 09:33 Hernia repair; open neck surgery to open carotid artery; Vasectomy; jl7 - Immunization history:: Adult Immunizations up to date. - Social history:: Smoking status: unknown. Screenin:33 Abuse screen: Denies threats or abuse. Denies injuries from another. Nutritional jl7 screening: No deficits noted. Tuberculosis screening: No symptoms or risk factors identified. Fall Risk IV access (20 points). Total Alonzo Fall Scale indicates No Risk (0-24 pts). Assessment: 09:44 General: Appears in no apparent distress. comfortable, Behavior is calm, cooperative, jd3 appropriate for age, Reports fatigue for >3 days. Pain: Denies pain. Neuro: Level of Consciousness is awake, alert, obeys commands, Oriented to person, place, time, situation. Cardiovascular: Denies chest pain, Capillary refill < 3 seconds Patient's skin is warm and dry. Respiratory: Reports shortness of breath on exertion cough that is non-productive, persistent Airway is patent Respiratory effort is even, unlabored, Respiratory pattern is regular, symmetrical. GI: No signs and/or symptoms were reported involving the gastrointestinal system. : No signs and/or symptoms were reported regarding the genitourinary system. EENT: No signs and/or symptoms were reported regarding the EENT system. Derm: Skin is intact, Skin is dry, Skin is normal, Skin temperature is warm. Musculoskeletal: Circulation, motion, and sensation intact. Range of motion: intact in all extremities. 11:33 Reassessment: Patient appears in no apparent distress at this time. No changes from jd3 previously documented assessment. Patient and/or family updated on plan of care and expected duration. Pain level reassessed. Patient is alert, oriented x 3, equal unlabored respirations, skin warm/dry/pink. 12:37 Reassessment: Patient appears in no apparent distress at this time. No changes from jd3 previously documented assessment. Patient and/or family updated on plan of care and expected duration. Pain level reassessed. Patient is alert, oriented x 3, equal unlabored respirations, skin warm/dry/pink. Patient denies pain at this time. 13:17 Reassessment: Patient appears in no apparent distress at this time. Patient and/or jd3 family updated on plan of care and expected duration. Pain level reassessed. Patient is alert, oriented x 3, equal unlabored respirations, skin warm/dry/pink. Patient denies pain at this time. Vital Signs: 09:44 BP 137 / 94; Pulse 99; Resp 19 S; Temp 98.7(O); Pulse Ox 99% on R/A; Weight 99.79 kg jd3 (R); Height 6 ft. 0 in. (182.88 cm) (R); Pain 0/10; 10:43 BP 109 / 73; Pulse 96; Resp 17; Pulse Ox 96% ; jl7 11:34 BP 126 / 86; Pulse 91; Resp 19; Pulse Ox 99% ; jl7 12:37 BP 140 / 86; Pulse 88; Resp 19; Pulse Ox 100% ; jl7 13:24 BP 116 / 70; Pulse 87; Resp 17 S; Pulse Ox 98% on R/A; jd3 09:44 Body Mass Index 29.84 (99.79 kg, 182.88 cm) jd3 ED Course: 09:25 Patient arrived in ED. mr 09:26 Kofi Davidson MD is Private Physician. mr 09:29 Zia Leija, NORTH is Primary Nurse. jd3 09:33 Elena Arriola FNP-C [facility]. kb 09:33 Dmitri Joyce MD is Attending Physician. kb 09:33 Patient has correct armband on for positive identification. Placed in gown. Bed in low jl7 position. Call light in reach. Side rails up X 1. retail sales consultant on. Pulse ox on. NIBP on. Warm blanket given. 09:34 Arm band placed on right wrist. jl7 09:43 Triage completed. jd3 09:53 Chest Single View XRAY In Process Unspecified. EDMS 10:00 COVID swab sent to lab. Flu and/or RSV swab sent to lab. jl7 11:10 Initial lab(s) drawn, by ok, sent to lab. First set of blood cultures drawn by ok. jl7 11:14 Inserted saline lock: 20 gauge in right forearm, using aseptic technique. Blood jl7 collected. 11:14 Second set of blood cultures drawn by me. jl7 13:16 Kofi Davidson MD is Referral Physician. kb 13:25 No provider procedures requiring assistance completed. IV discontinued, intact, jd3 bleeding controlled, No redness/swelling at site. Pressure dressing applied. Administered Medications: 11:33 Drug: Rocephin 1 grams Route: IV; Rate: calculated rate; Site: right forearm; jd3 11:36 Follow up: Response: No adverse reaction; IV Status: Completed infusion jl7 11:33 Drug: Zithromax 500 mg Route: IVPB; Infused Over: 1 hrs; Site: right forearm; jd3 12:37 Follow up: Response: No adverse reaction; IV Status: Completed infusion jl7 Outcome: 13:16 Discharge ordered by MD. womack 13:25 Discharged to home ambulatory, with family. jd3 13:25 Condition: stable 13:25 Discharge instructions given to patient, Instructed on discharge instructions, follow up and referral plans. medication usage, Demonstrated understanding of instructions, follow-up care, medications, Prescriptions given X 2. 13:25 Patient left the ED. jd3 Signatures: Dispatcher [employer] EDMS Elena Arriola, CELENA VAZQUEZ-Alexandria Perez Jahala RN RN celi7 Zia Leija RN RN jd3 Corrections: (The following items were deleted from the chart) 12:38 12:37 BP 140 / 86; Pulse 18bpm; Resp 18bpm; Spontaneous; Pulse Ox 100% RA; jd3 jd3
[2020-12-10 13:50] VITALS: TEMP 98.7
[2020-12-10 13:55] VITALS: BP 116/70; O2SAT 98
== END 2020-12-10 13:25 | disposition home or self-care (01) ==
LOC: ER 09:22
DX: J18.9 Pneumonia, unspecified organism (principal); Z20.822 Contact with and (suspected) exposure to COVID-19; I10 Essential (primary) hypertension; E11.9 Type 2 diabetes mellitus without complications
CPT/HCPCS: 96365; 87040 ×2; 85025; 80048; 36415; 83605; 84145; 0240U; 71045; 96375; 99284; J0456; J0696; J7050